=== PATIENT | female | born 1970 | race American Indian/Alaskan Native ===

== ENCOUNTER 2017-11-04 10:26 | Emergency (ER) | payer BC | END 2017-11-04 10:30 | disposition left against medical advice (07) | LOC: ED 10:26 | DX: H10.029 Other mucopurulent conjunctivitis, unspecified eye (principal); Z53.21 Procedure and treatment not carried out due to patient leaving prior to being seen by health care provider ==

== ENCOUNTER 2017-11-04 18:47 | Emergency (ER) | payer BC ==
[2017-11-04 19:32] VITALS: BP 144/86
[2017-11-05] MEDS ORDERED: MOTRIN PO ONE (02:34)
[2017-11-05] MEDS ORDERED: ERYTHROMYCIN OPHTH OINT OU ONE (02:34)
--- NOTE | 2017-11-05 02:36 | Emergency Department Report ---
ED ENT HPI - General Chief complaint: Eye Problems Stated complaint: FLU LIKE SYMPTOMS Time Seen by Provider: 11/05/17 01:42 Source: patient Mode of arrival: Ambulatory Limitations: No Limitations - History of Present Illness Initial comments: 47-year-old female past medical history hypertension, obesity presents with complaint of 2-3 days of bilateral eye irritation and right sided earache. 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 Agent denies chest pain palpitations shortness of breath nausea vomiting abdominal pain. States she is experiencing watery discharge worse from right eye than left. Denies any significant blurry vision. States she feels pressure building in her ears as well worse on right than left. Patient states she is allergic to penicillin. MD complaint: ear pain, other Onset/Timin -: days(s) Location: R ear Severity: moderate Severity scale (0 -10): 6 Quality: aching Consistency: constant Improves with: none Worsens with: none - Related Data Previous Rx's Medication Instructions Recorded Last Taken Type HYDROcodone/APAP 5-325 [Salix 1 each PO Q6HR PRN #14 tablet 05/08/16 Unknown Rx 5/325] Labetalol 100 mg PO DAILY #90 05/08/16 Unknown Rx Naproxen [Naprosyn] 500 mg PO BID #60 tablet 05/08/16 Unknown Rx Azithromycin [Zithromax TAB] 250 mg PO QDAY #1 pack 11/05/17 Unknown Rx Ibuprofen [Motrin] 800 mg PO Q8HR PRN #30 tablet 11/05/17 Unknown Rx Naphazoline HCl/Pheniramine 1 drop OP Q4H PRN #1 bottle 11/05/17 Unknown Rx [Naphcon-A Eye Drops] Tobramycin 0.3% [Tobrex] 1 drop OU Q4H #1 bottle 11/05/17 Unknown Rx Allergies Allergy/AdvReac Type Severity Reaction Status Date / Time Penicillins Allergy Itching Verified 01/25/14 21:02 ED Dental HPI - General Chief complaint: Eye Problems Stated complaint: FLU LIKE SYMPTOMS Time Seen by Provider: 11/05/17 01:42 Source: patient Mode of arrival: Ambulatory Limitations: No Limitations - Related Data Previous Rx's Medication Instructions Recorded Last Taken Type HYDROcodone/APAP 5-325 [Salix 1 each PO Q6HR PRN #14 tablet 05/08/16 Unknown Rx 5/325] Labetalol 100 mg PO DAILY #90 05/08/16 Unknown Rx Naproxen [Naprosyn] 500 mg PO BID #60 tablet 05/08/16 Unknown Rx Azithromycin [Zithromax TAB] 250 mg PO QDAY #1 pack 11/05/17 Unknown Rx Ibuprofen [Motrin] 800 mg PO Q8HR PRN #30 tablet 11/05/17 Unknown Rx Naphazoline HCl/Pheniramine 1 drop OP Q4H PRN #1 bottle 11/05/17 Unknown Rx [Naphcon-A Eye Drops] Tobramycin 0.3% [Tobrex] 1 drop OU Q4H #1 bottle 11/05/17 Unknown Rx Allergies Allergy/AdvReac Type Severity Reaction Status Date / Time Penicillins Allergy Itching Verified 01/25/14 21:02 ED Review of Systems ROS: Stated complaint: FLU LIKE SYMPTOMS Other details as noted in HPI ED Past Medical Hx - Past Medical History Previous Medical History?: Yes Hx Hypertension: Yes Additional medical history: bronchitis - Surgical History Past Surgical History?: Yes Hx Cholecystectomy: Yes Additional Surgical History: uterine ablasion, cyst from chest removed, tonsil, biopsy of left breast. - Social History Smoking Status: Never Smoker Substance Use Type: None - Medications Home Medications: Home Medications Medication Instructions Recorded Confirmed Last Taken Type HYDROcodone/APAP 5-325 [Salix 1 each PO Q6HR PRN #14 tablet 05/08/16 Unknown Rx 5/325] Labetalol 100 mg PO DAILY #90 05/08/16 Unknown Rx Naproxen [Naprosyn] 500 mg PO BID #60 tablet 05/08/16 Unknown Rx Azithromycin [Zithromax TAB] 250 mg PO QDAY #1 pack 11/05/17 Unknown Rx Ibuprofen [Motrin] 800 mg PO Q8HR PRN #30 tablet 11/05/17 Unknown Rx Naphazoline HCl/Pheniramine 1 drop OP Q4H PRN #1 bottle 11/05/17 Unknown Rx [Naphcon-A Eye Drops] Tobramycin 0.3% [Tobrex] 1 drop OU Q4H #1 bottle 11/05/17 Unknown Rx ED Physical Exam - General Limitations: No Limitations General appearance: alert, in no apparent distress - Head Head exam: Present: atraumatic, normocephalic - Eye Eye exam: Present: PERRL, EOMI, conjunctival injection (bilateral conjunctival injection worse on right than left.) Pupils: Present: normal accommodation - ENT ENT exam: Present: mucous membranes moist - Expanded ENT Exam Expanded TM/Canal exam: Erythema: Right TM (right tympanic membrane injected erythematous and bulging. Left unremarkable. No clinical signs of mastoiditis) , Bulging: Right TM Mouth exam: Present: normal external inspection Teeth exam: Present: normal inspection Throat exam: Positive: normal inspection - Neck Neck exam: Present: normal inspection, full ROM - Respiratory Respiratory exam: Present: normal lung sounds bilaterally. Absent: respiratory distress - Cardiovascular Cardiovascular Exam: Present: regular rate, normal rhythm. Absent: systolic murmur, diastolic murmur, rubs, gallop - GI/Abdominal GI/Abdominal exam: Present: soft, normal bowel sounds - Extremities Exam Extremities exam: Present: normal inspection - Back Exam Back exam: Present: normal inspection - Neurological Exam Neurological exam: Present: alert, oriented X3, CN II-XII intact, normal gait - Psychiatric Psychiatric exam: Present: normal affect, normal mood - Skin Skin exam: Present: warm, dry, intact, normal color. Absent: rash ED Course Vital Signs 11/04/17 11/04/17 19:25 19:30 Temperature 98.2 F 98.2 F Pulse Rate 87 86 Respiratory 18 18 Rate Blood Pressure 144/86 144/86 O2 Sat by Pulse 100 100 Oximetry ED Medical Decision Making - Medical Decision Making A/P: Conjunctivitis, otitis media 1-will treat patient empirically based on exposure and symptoms. Motrin when necessary. 2-as patient is pen allergic will give azithromycin for otitis media [email or web address] 3-tobramycin drops. Patient prefers drops to ointment. 4- follow-up with primary care doctor. Critical care attestation.: If time is entered above; I have spent that time in minutes in the direct care of this critically ill patient, excluding procedure time. ED Disposition Clinical Impression: Otitis media Qualifiers: Otitis media type: suppurative Chronicity: acute Laterality: right Recurrence: not specified as recurrent Spontaneous tympanic membrane rupture: without spontaneous rupture Qualified Code(s): H66.001 - Acute suppurative otitis media without spontaneous rupture of ear drum, right ear Conjunctivitis Qualifiers: Conjunctivitis type: other Laterality: bilateral Qualified Code(s): H10.89 - Other conjunctivitis Disposition: DC- TO HOME OR SELFCARE Is pt being admited?: No Does the pt Need Aspirin: No Condition: Stable Instructions: Conjunctivitis (ED), Otitis Media (ED) Prescriptions: Azithromycin [Zithromax TAB] 250 mg PO QDAY #1 pack Ibuprofen [Motrin] 800 mg PO Q8HR PRN #30 tablet PRN Reason: Pain Naphazoline HCl/Pheniramine [Naphcon-A Eye Drops] 1 drop OP Q4H PRN #1 bottle PRN Reason: Dry Eye(S) Tobramycin 0.3% [Tobrex] 1 drop OU Q4H #1 bottle Referrals: [facility] [Outside] - 3-5 Days [facility] [Outside] - 3-5 Days Forms: Work/School Release Form(ED) Time of Disposition: 02:37
== END 2017-11-05 02:50 | disposition home or self-care (01) ==
LOC: ED 18:47
DX: H10.89 Other conjunctivitis (principal); H66.001 Acute suppurative otitis media without spontaneous rupture of ear drum, right ear; I10 Essential (primary) hypertension; Z90.49 Acquired absence of other specified parts of digestive tract; Z98.890 Other specified postprocedural states; Z88.0 Allergy status to penicillin
CPT/HCPCS: 99282